=== PATIENT | male | born 1950 | race Caucasian/White ===

== ENCOUNTER 2018-09-08 03:18 | Inpatient (IN) | payer OTHER ==
--- OUTSIDE RECORDS SUMMARY | 2018-09-08 03:21 | XMS REPORT | Continuity of Care Document ---
:1950 Author Organization Interface Problems Problem Status Onset Classification Date Comments Source Date Reported M47.812 - SPONDYLOSIS Active 08/28/19 [facility] W/O MYELOPATHY OR [place] BACK/ ARM/ NECK PAIN Active 06/12/[address] CERVICAL SPINAL Active 06/12/[address] Hypercholesteremia Resolved Problem 07/31/2017 [facility]ension Resolved Problem 07/31/2017 [facility], [facility] Hypothyroid Resolved Problem 07/31/2017 [facility] Hiatal hernia Active Problem 07/31/2017 [facility], [facility] Osteoarthritis Resolved Problem 07/31/2017 [facility], [facility] Cervical stenosis of Resolved Problem 07/31/2017 [facility] spinal canal Neuro, [facility] SPINAL STENOSIS, Active [facility] Medications Medication Details Route Status Patient Ordering Order Source Instructions Provider Date tamsulosin 0.4 mg 0.8 mg=2 cap, Active 07/04[facility] oral capsule PO, After 2017 Medical Breakfast, # 60 Center cap, 0 Refill(s) Docusate Sodium 100 mg=1 cap, Active 07/04[facility] [place] 100 MG Oral PO, Q12H, # 30 2017 Medical Capsule cap, 0 Refill(s) Center diazepam 5 mg 5 mg=1 tab, PO, Active 07/04[facility] oral tablet Q8H, PRN Spasm, 2017 Medical # 30 tab, 0 Center Refill(s) Melatonin 3 MG 3 mg, 1 tab, No Longer [facility] Extended Release Route: PO, Drug Active 2016 Medical Tablet Form: TAB, Center Dosing Weight 81.364, kg, PRN, PRN as needed for insomnia, Start date: 07/03/16 18:36:00 CDT, Duration: 30 day, Stop date: 08/02/16 18:35:00 CDTNotes: (Same as: Melatonin) metoprolol 25 mg=1 tab, PO, Active [place] tartrate 25 mg BID, # 180 tab, 2017 Medical oral tablet 0 Refill(s) Center Lisinopril 10 mg, 1 tab, No Longer [place] Route: PO, Drug Active 2016 Medical form: TAB, Center Daily, Dosing Weight 81.364, kg, Start date: 07/03/16 9:00:00 CDT, Duration: 30 day, Stop date: 08/01/16 9:00:00 CDTNotes: (Same as: Prinivil, Zestril) Flomax 0.8 mg, 2 cap, No Longer [facility] Route: PO, Drug Active 2016 Medical form: CAP, After Center Breakfast, Dosing Weight 81.364, kg, Start date: 07/03/16 8:30:00 CDT, Duration: 30 day, Stop date: 08/01/16 8:30:00 CDTNotes: (Same As: Flomax) "Do Not Crush" Thyroxine 75 microgram, 1 No Longer [facility] tab, Route: PO, Active 2016 Medical Drug form: TAB, Center Q630AM, Dosing Weight 81.364, kg, Start date: 07/03/16 6:30:00 CDT, Duration: 30 day, Stop date: 08/01/16 6:30:00 CDT Cefazolin 2 gm, Route: No Longer [facility] IVPB, ABXQ8H, Active 2016 Medical Dosing Weight Center 81.364, kg, Start date: 07/02/16 20:00:00 CDT, Duration: 24 hr, Stop date: 07/03/16 12:00:00 CDTNotes: (Same As: AncJeferson solorzanofzofabby) MEDICATION WASTE Product Size: 1000 mg Product Wasted: ___ mg Dexamethasone 4 mg, 1 mL, No Longer [place] Route: IVP, Drug Active 2016 Medical form: INJ, Q6H, Center Dosing Weight 81.364, kg, Start date: 07/02/16 18:00:00 CDT, Duration: 30 day, Stop date: 08/01/16 12:00:00 CDTNotes: Concentration: 4mg/ml metoprolol 50 mg, 1 tab, No Longer [facility] extended release Route: PO, Drug Active 2016 Medical form: ERTAB, Center BID, Start date: 07/02/16 17:00:00 CDT, Duration: 30 day, Stop date: 08/01/16 9:00:00 CDTNotes: (Same as: Toprol XL) Diazepam 5 mg, 1 tab, No Longer [facility] Route: PO, Drug Active 2016 Medical form: TAB, Q8H, Center Dosing Weight 81.364, kg, Start date: 07/02/16 16:00:00 CDT, Duration: 30 day, Stop date: 08/01/16 8:00:00 CDTNotes: (Same as: Valium) Oxycodone 5 mg, Route: PO, Inactive [facility] Drug form: TAB, 2017 Medical Q4H, Dosing Center Weight 81.364, kg, PRN Pain Score 4-6, Start date: 07/02/16 14:58:00 CDT, Duration: 30 day, Stop date: 08/01/16 14:57:00 CDT Ondansetron 4 mg, Route: Inactive [facility] IVP, ONCE, 2017 [facility] Dosing Weight [place] 81.364, kg, PRN Nausea & Vomiting, Start date: 07/02/16 14:58:00 CDT Flumazenil 0.2 mg, Route: Inactive [facility] IVP, PRN, Dosing 2017 Medical Weight 81.364, Center kg, PRN Benzodiazepine Reversal, Initial dose, Start date: 07/02/16 14:58:00 CDT, Duration: 30 day, Stop date: 08/01/16 14:57:00 CDT Naloxone 0.4 mg, Route: Inactive [facility] IVP, Q2MIN, 2017 Medical Dosing Weight Center 81.364, kg, PRN Narcotic Reversal, Start date: 07/02/16 14:58:00 CDT, Duration: 8 doses or times, Stop date: Limited # of times Hydromorphone 0.5 mg, Route: Inactive [facility] IVP, Q5Min, 2017 Medical Dosing Weight Center 81.364, kg, PRN Pain Score 7-10, Start date: 07/02/16 14:58:00 CDT, Duration: 4 doses or times, Stop date: Limited # of times Dexamethasone 10 mg, Route: Inactive [place] IVP, ONCE, 2017 Medical Dosing Weight Center 81.364, kg, Priority: NOW, Start date: 07/02/16 14:57:00 CDT, Stop date: 07/02/16 14:57:00 CDT Benadryl 25 mg, 1 cap, No Longer [place] Route: PO, Drug Active 2016 Medical form: CAP, TID, Center Dosing Weight 81.364, kg, PRN Itching, Start date: 07/02/16 14:55:00 CDT, Duration: 30 day, Stop date: 08/01/16 14:54:00 CDTNotes: (Same as: Benadryl) phenol 1 spray, Route: No Longer [facility] TOP, Daily, Drug Active 2016 Medical form: SPRY, PRN Center Sore Throat, Start date: 07/02/16 14:54:00 CDT, Duration: 30 day, Stop date: 08/01/16 14:53:00 CDTNotes: Chloraseptic [place] (Same as: Chloraseptic, Sore Throat [place]) WASTE: F/P - Black; E - Municipal Trash Bin Hydralazine 20 mg, 1 mL, No Longer [facility] Route: IVP, Drug Active 2016 Medical form: INJ, Q4H, Center Dosing Weight 81.364, kg, PRN Hypertension, Start date: 07/02/16 14:54:00 CDT, Duration: 30 day, Stop date: 08/01/16 14:53:00 CDTNotes: (Same as: Apresoline) Push over 5 minutes Labetalol 10 mg, 2 mL, No Longer [facility] Route: IVP, Drug Active 2016 Medical form: INJ, Center Q15Min, Dosing Weight 81.364, kg, PRN Hypertension, Start date: 07/02/16 14:54:00 CDT, Duration: 3 doses or times, Stop date: 07/31/16 0:00:00 CDT ondansetron Route: IV, Drug Inactive [facility]ush[facility] (ANES) form: INJ, ONCE, 2016 Medical Stop date: [place] 07/02/16 14:36:00 CDT neostigmine Route: IV, Drug Inactive [facility] (ANES) form: INJ, ONCE, 2016 Medical Stop date: [place] 07/02/16 14:36:00 CDT metoprolol (ANES) Route: IV, Drug Inactive [facility] form: INJ, ONCE, 2016 Medical Stop date: [place] 07/02/16 14:15:00 CDT hydromorphone Route: IV, Drug Inactive [facility]ar (ANES) + sodium form: INJ, ONCE, 2016 Medical chloride 0.9% 10 Stop date: [facility] INJ (ANES) 07/02/16 (ANES) 13:05:00 CDT acetaminophen Route: IV, Drug Inactive Tushar (ANES) (ANES) form: INJ, Start 2016 Medical date: 07/02/16 [place] 11:27:00 CDT, Stop date: 07/02/16 12:27:00 CDT labetalol (ANES) Route: IV, Drug Inactive [facility] form: INJ, ONCE, 2016 Medical Stop date: [place] 07/02/16 10:05:00 CDT ePHEDrine (ANES) Route: IV, Drug Inactive [facility] form: INJ, ONCE, 2016 Medical Stop date: [place] 07/02/16 9:38:00 CDT ketAMINE (ANES) Route: IV, Drug Inactive [facility] form: INJ, ONCE, 2016 Medical Stop date: [place] 07/02/16 9:38:00 CDT glycopyrrolate Route: IV, Drug Inactive [facility] (ANES) form: INJ, ONCE, 2016 Medical Stop date: [place] 07/02/16 9:38:00 CDT dexamethasone Route: IV, Drug Inactive [facility] (ANES) form: INJ, ONCE, 2016 Medical Stop date: [place] 07/02/16 9:33:00 CDT rocuronium (ANES) Route: IV, Drug Inactive [facility] form: INJ, ONCE, 2016 Medical Stop date: [place] 07/02/16 9:33:00 CDT fentaNYL (ANES) Route: IV, Drug Inactive [facility] form: INJ, ONCE, 2016 Medical Stop date: [place] 07/02/16 9:33:00 CDT propofol (ANES) Route: IV, Drug Inactive [facility] form: INJ, ONCE, 2016 Medical Stop date: [place] 07/02/16 9:33:00 CDT midazolam (ANES) Route: IV, Drug Inactive [facility] form: SOLN, 2017 Medical ONCE, Stop date: [place] 07/02/16 9:28:00 CDT ceFAZolin (ANES) Route: IV, Drug Inactive [facility] form: INJ, ONCE, 2016 Medical Stop date: [place] 07/02/16 9:28:00 CDT lidocaine (ANES) Route: IV, Drug Inactive [facility] form: INJ, ONCE, 2016 Medical Stop date: [place] 07/02/16 9:28:00 CDT Saline Flush 0.9% 10 ml, Route: No Longer [facility] IVP, Drug Form: Active 2016 Medical INJ, Dosing Center Weight 81.364, kg, Q12H, Start date: 07/02/16 9:00:00 CDT, Duration: 30 day, Stop date: 07/31/16 21:00:00 CDTNotes: Same as: BD Posiflush Sterile Docusate 100 mg, 1 cap, No Longer [place] Route: PO, Drug Active 2016 Medical form: CAP, Q12H, Center Dosing Weight 81.364, kg, Start date: 07/02/16 9:00:00 CDT, Duration: 30 day, Stop date: 07/31/16 21:00:00 CDTNotes: (Same as: Colace) (Do Not Crush) sennosides, MCC 8.6 mg, 1 tab, No Longer [place] Route: PO, Drug Active 2016 Medical Form: TAB, Center Dosing Weight 81.364, kg, Q12H, Start date: 07/02/16 9:00:00 CDT, Duration: 30 day, Stop date: 07/31/16 21:00:00 CDTNotes: (Same as: Senokot) Famotidine 20 mg, 2 mL, No Longer [facility] Route: IVP, Drug Active 2016 Medical form: INJ, Q12H, Center Dosing Weight 81.364, kg, Start date: 07/02/16 9:00:00 CDT, Duration: 30 day, Stop date: 07/31/16 21:00:00 CDTNotes: (Same as: Pepcid) Can be dilute in 5-10cc NS IVP: Slow IV push over at least 2 minutes. sodium chloride Route: IV, Drug Inactive [facility] 0.9% 100 ml INJ form: INJ, Start 2016 Medical (ANES) + date: 07/02/16 Center dexmedetomidine 8:55:00 CDT, (ANES) (ANES) Stop date: 07/02/16 9:55:00 CDT Dextrose 50% 12.5 gm, 25 mL, No Longer [facility] Syringe Route: IVP, Drug Active 2016 Medical Form: INJ, Center Dosing Weight 81.364, kg, PRN, PRN Abnormal Lab Result, Start date: 07/02/16 8:21:00 CDT, Duration: 30 day, Stop date: 08/01/16 8:20:00 CDT Regular Insulin, 3 unit, 0.03 mL, No Longer [place] Human 100 UNT/ML Route: SUB-Q, Active 2016 Medical Injectable Drug form: SOLN, Center Solution PRN, Dosing Weight 81.364, kg, PRN Abnormal Lab Result, Start date: 07/02/16 8:21:00 CDT, Duration: 30 day, Stop date: 08/01/16 8:20:00 CDTNotes: (Same as: Humulin R) Roll in palms of hands gently; Do not shake vigorously. "single patient use only" (Restricted to patients requiring a dose > 60 units) WASTE: F/P - Black; E - Municipal Trash Bin Stable for 28 days at room temperature Expires in days from Da te Saline Flush 0.9% 10 ml, Route: No Longer [facility] IVP, Drug Form: Active 2016 Medical INJ, Dosing Center Weight 81.364, kg, PRN, PRN Line Flush, Start date: 07/02/16 8:21:00 CDT, Duration: 30 day, Stop date: 08/01/16 8:20:00 CDTNotes: Same as: BD Posiflush Sterile Ondansetron 4 mg, 2 mL, No Longer [place] Route: IVP, Drug Active 2016 Medical form: INJ, Q8H, Center Dosing Weight 81.364, kg, PRN Nausea & Vomiting, Start date: 07/02/16 8:21:00 CDT, Duration: 30 day, Stop date: 08/01/16 8:20:00 CDTNotes: (Same as: Zofran) MEDICATION WASTE Product Size: 4 mg Product Wasted: ___ mg Bisacodyl 10 mg, 1 supp, No Longer [place] Route: VT, Drug Active 2016 Medical form: SUPP, Center Daily, Dosing Weight 81.364, kg, PRN Constipation, Start date: 07/02/16 8:21:00 CDT, Duration: 30 day, Stop date: 08/01/16 8:20:00 CDTNotes: (Same As: Dulcolax, Bisco-Lax) Acetaminophen 650 mg, 2 tab, No Longer [place] Route: PO, Drug Active 2016 Medical form: TAB, Q4H, Center Dosing Weight 81.364, kg, PRN Pain 1-3/Temp > 99.5 F, Start date: 07/02/16 8:21:00 CDT, Duration: 30 day, Stop date: 08/01/16 8:20:00 CDTNotes: Do not exceed 4 gm/day. (Same as: Tylenol) Morphine 2 mg, 0.5 mL, No Longer [facility] Route: IVP, Drug Active 2016 Medical form: INJ, Q1H, Center Dosing Weight 81.364, kg, PRN Pain Score 7-10, Start date: 07/02/16 8:21:00 CDT, Duration: 30 day, Stop date: 08/01/16 8:20:00 CDTNotes: (Same as:MORPhine Sulfate) Acetaminophen 325 1 tab, Route: No Longer [facility] MG / Hydrocodone PO, Drug Form: Active 2017 Medical Bitartrate 10 MG TAB, Dosing Center Oral Tablet Weight 81.364, kg, Q4H, PRN Pain Score 4-6, Start date: 07/02/16 8:21:00 CDT, Duration: 30 day, Stop date: 08/01/16 8:20:00 CDTNotes: Do not exceed 4gm/day of acetaminophen. (Same as: [place] 325/10) Sodium Chloride 1,000 mL, Rate: No Longer Tushar 0.154 MEQ/ML 100 ml/hr, Active 2016 Medical Injectable Infuse over: 10 Center Solution hr, Route: IV, Dosing Weight 81.364 kg, Total Volume: 1,000, Start date: 07/02/16 8:21:00 CDT, Duration: 30 day, Stop date: 08/01/16 8:20:00 CDT LR 1000 mL INJ Route: IV, Total Inactive Tushar (ANES) Volume: 1,000, 2016 Medical Start date: Center 07/02/16 8:10:00 CDT, Stop date: 07/02/16 9:10:00 CDT ceFAZolin 2 gm, 100 mL, No Longer [facility] Route: IVPB, Active 2016 Medical Drug form: INJ, Center PRE OP, Start date: 07/01/16 23:00:00 CDT, Duration: 1 day, Stop date: 07/02/16 22:59:00 CDTNotes: Same as: Ancef Acetaminophen 325 1 tab, PO, Q6H, Active [facility] MG / Hydrocodone PRN Pain, # 60 2016 Medical Bitartrate 7.5 MG tab, 0 Refill(s) Center Oral Tablet [[place] 7.5/325] levothyroxine 75 75 microgram=1 Active [facility]ar mcg (0.075 mg) tab, PO, Daily, 2017 Medical oral tablet # 30 tab, 0 Center Refill(s) {21 See Active [facility] (Methylprednisolo Instructions, 2017 Medical ne 4 MG Oral PO, Take by Center Tablet [Medrol]) mouth as } Pack [Medrol directed on Dosepak] label., # 1 Pack, 0 Refill(s), Pharmacy: [facility] #[id number] Acetaminophen 325 1 tab, Route: Inactive [place] MG / Hydrocodone PO, Drug Form: 2016 Medical Bitartrate 5 MG TAB, Dosing Center Oral Tablet Weight 82.727, kg, ONCE, STAT, Start date: 06/11/16 18:52:00 CDT, Stop date: 06/11/16 18:52:00 CDT Acetaminophen 650 mg, Route: Inactive [place] PO, Drug form: 2016 Medical TAB, ONCE, Center Dosing Weight 82.727, kg, Priority: STAT, Start date: 06/11/16 17:12:00 CDT, Stop date: 06/11/16 17:12:00 CDT Acetaminophen 325 1 tab, Route: Inactive [place] MG / Hydrocodone PO, Drug Form: 2016 Medical Bitartrate 5 MG TAB, Dosing Center Oral Tablet Weight 82.727, kg, ONCE, STAT, Start date: 06/11/16 11:57:00 CDT, Stop date: 06/11/16 11:57:00 CDT Allergies, Adverse Reactions, Alerts Substance Category Reaction Severity Reaction Status Date Comments Source type Reported Immunizations Immunization Date Given Site Status Last Updated Comments Source Results Order Name Results Value Reference Date Interpretation Comments Source Range Spine Spine EXAM: CT CERVICAL SPINE WITHOUT CONTRAST 04/01 [facility] cervical wo cervical - [place] contrast CT contrast CT DATE: 04/01/2018 10:47 AM APPLICATION SOFTWARE DEVELOPER Read by: Derek Chau MD Dictated Date/time: 04/01/18 11:47 Electronically Signed by: Derek Chau MD 04/01/18 12:02 FINAL REPORT INDICATION: M 54.12 radiculopathy, cervical region COMPARISON: Conventional radiographs 08/21/2016 TECHNIQUE: Volumetric acquisition of the cervical spine, from the level of the skull base to upper T3 without contrast. Axial, sagittal and coronal reconstructions. IV contrast: None. DLP: 453.96 mGy-cm FINDINGS: The visualized portions of the brain parenchyma are unremarkable. The craniocervical junction has a normal appearance. The cerebellar tonsils are in the normal position. No obvious intradural pathology is present. The patient has undergone an anterior cervical fusion at C4-C5 in the distant past with interval removal of the associated hardware. More recent anterior cervical fusions are present at C3-C4 and C6-C7. Interbody fusion devices are present at each of these levels. The fixation hardware and associated screws are normally located without evidence of fracture or loosening. The interbody device is well incorporated at the C3-C4 level. It is incorporated centrally at C5-C6 although the lateral aspects of the disc do not yet demonstrate bony ankylosis. In addition to the postsurgical fusions there is bony ankylosis of the left articular facet complex at C2-C3. Vertebral alignment: A slight reduction of the cervical lordosis is noted consequent to the upper cervical fusions. Alignment is otherwise preserved and unchanged. Vertebral shape: Vertebral height is normal. Fracture: None. Disk spaces, spinal canal and foramina: There is relative preservation of intervertebral disc height at the C5-C6 unfused level. A large left marginal osteophyte extends superiorly from the disc space t oward the foramen transversarium other discs are obliterated as a consequence of fusion. Above the level of fusion there is a reduction in intervertebral disc height at C2-C3 with left uncinate process hypertrophy. C2-C3: Minimal left foraminal stenosis. C3-C4: Moderate left foraminal stenosis. Mild right foraminal narrowing. C4-C5: No spinal canal or foraminal narrowing. C5-C6: No spinal canal stenosis. Minimal bilateral foraminal narrowing. C6-C7: Mild residual ventral encroachment on the spinal canal. Mild to moderate foraminal narrowing on the left. Spinal canal contents and spinal cord: No obvious abnormality. Paraspinal soft tissues: Expected postprocedural changes. No radiographic findings of vocal cord paralysis are present. IMPRESSION: Superior and inferior cervical fusion constructs are intact. Mild residual canal encroachment at C6-C7 with mild to moderate foraminal narrowing on the left. Spine Spine EXAM: XR CERVICAL SPINE 2 VIEWS 08/21 - [facility] cervical 2 cervical - [place] or 3 view or 3 view DX DX DATE: 08/21/2016 2:24 PM CDT Read by: Jose Rose MD Dictated Date/time: 08/21/16 14:48 Electronically Signed by: Jose Rose MD 08/21/16 14:49 FINAL REPORT INDICATION: - EVERARDO Castellon/DR. HAMILTON 08/31/16 @ 2:00P COMPARISON: Radiograph dated 07/14/2016 TECHNIQUE: AP and lateral views of the cervical spine FINDINGS: Anterior fusion hardware C3-C4 and C6-C7 again visualized unchanged without complications. Osseous fusion of C4-C5 also appears unchanged. C5-C6 and C2-C3 disc space appears intact. No fractures. No soft tissue abnormality. IMPRESSION: 1. No acute abnormality. 2. Anterior fusion hardware C3-C4 and C6-C7 in good position. Spine Spine EXAM: XR CERVICAL SPINE 2 VIEWS 07/14 - [facility] cervical 2 cervical - [place] or 3 view or 3 view DX DX DATE: 07/14/2016 11:49 AM CDT Read by: James Whaley MD Dictated Date/time: 07/14/16 12:24 Electronically Signed by: James Whaley MD 07/14/16 12:25 FINAL REPORT INDICATION: Z98.1 Arthrodesis status COMPARISON: Previous day MRI TECHNIQUE: AP and lateral views of the cervical spine FINDINGS: ACDF spanning C3/C4 and C6/C7. Satisfactory alignment. Vertebral body heights, disk heights and alignment are otherwise preserved. No prevertebral or paraspinous soft tissue abnormality is identified. IMPRESSION: No acute abnormality. ACDF across C3/4 and C6/C7. ELECTROLYTE AGAP 10.1 meq/L 10.0 - 07/[address] [facility] [address] [facility] ELECTROLYTE eGFR 83 07/02 Result Comment: The eGFR is calculated using the CKD-EPI formula. In most young, healthy individuals the eGFR will be >90 mL/ min/1.73m2. The eGFR declines with age. An eGFR of 60-89 may be normal in [facility] mL/min/1.73 /[facility] some populations, particularly the elderly, for whom the CKD-EPI formula has not been extensively validated. Use of the eGFR is not recommended in the following populations: [address] Individuals with unstable creatinine concentrations, including patients and those with serious co-morbid conditions. Patients with extremes in muscle mass or diet. The data above are obtained from the National Kidney Disease Education Program (NKDEP) which additionally recommends that when the eGFR is used in patients with extremes of body mass index for purposes of drug dosing, the eGFR should be multiplied by the estimated BMI. ELECTROLYTE CO2 28 meq/L 24 - 32 07/[address] ELECTROLYTE Calcium Lvl 8.9 mg/dL 8.5 - 10.5 07/[address] ELECTROLYTE Chloride Lvl 105 meq/L 95 - 109 07/02 [facility] ELECTROLYTE Potassium 4.1 meq/L 3.5 - 5.1 07/02 [facility] S Lvl [facility] ELECTROLYTE BUN 15 mg/dL 7 - 22 07/02 [facility] ELECTROLYTE Creatinine 0.95 mg/dL 0.50 - 07/02 [facility] S Lvl 1.40 [facility] ELECTROLYTE Sodium Lvl 139 meq/L 135 - 145 07/02 [facility] ELECTROLYTE Glucose Lvl 93 mg/dL 70 - 99 07/02 [facility] HEMATOLOGY INR 1.07 0.85 - 07/[address] [facility] HEMATOLOGY PTT 28.7 s 22.9 - 07/[address] [facility] HEMATOLOGY PT 14.1 s 12.0 - 07/[address] [facility] HEMATOLOGY MCH 29.5 pg 27.0 - 07/[address] [facility] HEMATOLOGY MPV 8.0 fL 7.4 - 10.4 07/02 [facility] HEMATOLOGY Platelet 266 K/CMM 133 - 450 07/02 [facility] HEMATOLOGY MCV 87.4 fL 80.0 - 07/[address] [facility] HEMATOLOGY MCHC 33.7 g/dL 32.0 - 07/[address] [facility] HEMATOLOGY RDW 12.3 % 11.5 - 07/[address] [facility] HEMATOLOGY WBC 6.5 K/CMM 3.7 - 10.4 07/02 [facility] HEMATOLOGY RBC 5.05 M/CMM 4.70 - 07/[address] [facility] HEMATOLOGY Hgb 14.9 g/dL 14.0 - 07/[address] [facility] HEMATOLOGY Hct 44.1 % 42.0 - 07/[address] [facility] HEMATOLOGY Basophils # 0.2 K/CMM 0.0 - 0.2 07/02 [facility] HEMATOLOGY Basophils 2.5 % 0.0 - 1.0 07/02 [facility] HEMATOLOGY Segs-Bands # 3.5 K/CMM 1.5 - 8.1 07/02 [facility] HEMATOLOGY Segs 54.8 % 45.0 - 07/[address] [place] [address] [facility] HEMATOLOGY Lymphocytes 30.9 % 20.0 - 07/[address] [place] [address] [facility] HEMATOLOGY Monocytes 8.5 % 2.0 - 12.0 07/02 [facility] HEMATOLOGY Eosinophils 3.3 % 0.0 - 4.0 07/02 [facility] HEMATOLOGY Lymphocytes 2.0 K/CMM 1.0 - 5.5 07/02 [place] # /2016 [facility] HEMATOLOGY Monocytes # 0.6 K/CMM 0.0 - 0.8 07/02 [facility] HEMATOLOGY Eosinophils 0.2 K/CMM 0.0 - 0.5 07/[address] [facility] BLOOD BANK ABO/Rh O POS 07/02 [facility] RESULTS [facility] BLOOD BANK Antibody Negative 07/02 [facility] RESULTS [facility] (07/02/16 7:15 AM) Center Spine Spine EXAM: MRI CERVICAL SPINE WITHOUT CONTRAST 06/11 - [facility] cervical wo cervical - [facility] contrast contrast MRI This report was dictated by a Eye Technician/Fellow. I have personally reviewed the images as Center MRI well as the Resident's interpretation and agree with the findings. DATE: 06/11/2016 at 1525 hours Read by: Joaquin Low MD Resident: Joaquin Low MD Dictated Date/time: 06/11/16 15:56 Electronically Signed by: Shelton Rangel MD 06/11/16 17:16 FINAL REPORT INDICATION: 65 years old male patient with history of history of cervical spine fusion, with neck pain radiating into right arm for 3 weeks.. COMPARISON: None TECHNIQUE: Multiplanar, multisequence noncontrast MR imaging of the cervical spine. FINDINGS: There is status post anterior interbody fusion at C4-C5 along with anterior instrumentation. All discs are desiccated. Degenerative disc collapse is present C3-C4. The C5-C6 level is normal in height. C anal stenosis is present at C3-C4 and C6-C7. The vertebral bodies are normal in alignment. There is mild degenerative loss of the vertebral body height at C3, C6, and C7. Aside from small vertebral hem angiomas, the bone marrow signals are normal. The prevertebral and paravertebral soft tissues are unremarkable. Levels not mentioned specifically below are deemed normal. INDIVIDUAL LEVELS: C3-C4: There is loss of disc height with associated posterior disc osteophyte complex resulting in slight indentation of the ventral cord. There is uncovertebral hypertrophy without neuroforaminal stenosis. C4-C5: Changes of ACDF are present. The spinal canal is normal in diameter. The neural foramina are patent. There is focal T2 hyperintensity seen in the left aspect of the cord. The cervical cord looks slightly thicker above and below this level suggesting a degree of atrophy. C6-C7: There is diffuse bulging of the posterior annulus resulting in slight indentation of the ventral cord. No myelomalacia seen. There is minimal uncovertebral hypertrophy. The neural foramina appear patent. IMPRESSION: 1. Moderate spinal canal stenosis at C3-C4 and C6-C7 with indentation of the ventral cord without myelomalacia. 2. 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 Vital Signs Vital Sign Value Date Comments Source Heart Rate 67 07/04/2016 [facility] Systolic (mm Hg) 145 07/04/2016 [facility] Diastolic (mm Hg) 82 07/04/2016 [facility] Respitory Rate 18 07/04/2016 [facility] Temperature Oral (F) 97 F 07/04/2016 [facility] Heart Rate 56 07/04/2016 [facility] Systolic (mm Hg) 137 07/04/2016 [facility] Diastolic (mm Hg) 71 07/04/2016 [facility] Respitory Rate 18 07/04/2016 [facility] Heart Rate 65 07/04/2016 [facility] Temperature Oral (F) 97.0 F 07/04/2016 [facility] Systolic (mm Hg) 121 07/04/2016 [facility] Diastolic (mm Hg) 70 07/04/2016 [facility] Respitory Rate 18 07/04/2016 [facility] Temperature Oral (F) 97.4 F 07/04/2016 [facility] Weight 81.364 07/02/2016 [facility] BMI Calculated 28.95 07/02/2016 [facility] Height 167.64 cm 07/02/2016 [facility] Weight 81.364 07/01/2016 [facility] BMI Calculated 28.95 07/01/2016 [facility] Height 167.64 cm 07/01/2016 [facility] Systolic (mm Hg) 174 06/12/2016 [facility] Diastolic (mm Hg) 82 06/12/2016 [facility] Heart Rate 54 06/12/2016 [facility] Temperature Oral (F) 98.0 F 06/12/2016 [facility] Respitory Rate 16 06/12/2016 [facility] Temperature Oral (F) 97.7 F 06/11/2016 [facility] Heart Rate 55 06/11/2016 [facility] Systolic (mm Hg) 162 06/11/2016 [facility] Diastolic (mm Hg) 96 06/11/2016 [facility] Respitory Rate 16 06/11/2016 [facility] Weight 82.727 06/11/2016 [facility] Height 167.64 cm 06/11/2016 [facility] BMI Calculated 29.44 06/11/2016 [facility] Temperature Oral (F) 96.7 F 06/11/2016 [facility] Heart Rate 55 06/11/2016 [facility] Respitory Rate 16 06/11/2016 [facility] Systolic (mm Hg) 182 06/11/2016 [facility] Diastolic (mm Hg) 100 06/11/2016 [facility] Encounters Location Location Encounter Encounter Reason Attending ADM DC Status Source Details Type Number For Provider Date Date [id number] [id number] [facility] 06/12 [facility] [id number] [facility] 07[facility]03 [facility] Out[facility] [id number] OLIVIER 07/14 [facility] [id number] Olivier 07/14 07/15 [facility] [id number] OLIVIER 08/21 [facility] Out[facility] Di[facility] [id number] Olivier 08/21 08/22 [facility]2016 [facility] Outpatient [id number] [facility] 10/30 [facility] Phone [id number] 04/23 04/25 [facility]2017 [facility] [id number] [facility] 04/01 [facility] Procedures Procedure Code Date Perfomer Comments Source Cervical [id number] anterior 6-7 [facility] discectomy<sup>1</sup> [id number] Esophagoduodenostomy [id number] [facility] Cervical [id number] anterior 6-7 [facility] discectomy<sup>1</sup> [facility] Cervical discectomy [id number] [facility] Colonoscopy [id number] [facility] Esophagoduodenostomy [id number] [facility] Cervical [id number] anterior 6-7 [place] discectomy<sup>1</sup> [facility] Cervical discectomy [id number] [facility] Colonoscopy [id number] [facility] Esophagoduodenostomy [id number] [facility]
[2018-09-08] MEDS ORDERED: CEFTRIAXONE/SWI 1gm 1 GM/10 ML SYR ONE (04:25)
[2018-09-08] MEDS ORDERED: MORPHINE 4 MG/ML SYR ONE ×3 (04:25→08:28)
[2018-09-08] MEDS ORDERED: NA CHLORIDE 0.9% 1,000 ML ONE (04:25)
[2018-09-08] MEDS ORDERED: ONDANSETRON 4 MG/2 ML VIAL ONE (04:25)
[2018-09-08] MEDS ORDERED: CIPROFLOXACIN 400mg IV 400 MG/200 ML BAG IV ONE (04:26)
[2018-09-08] MEDS ORDERED: METRONIDAZOLE 500mg IVPB 500 MG/100 ML BAG IV ONE (04:26)
[2018-09-08 04:57] LABS: Absolute Lymphocytes (CBC) 1.4 K/uL (0.7-4.9); Basophils % 0.2 % (0-1.3); Eosinophils % 0.2 % (0-4.4); Hematocrit 47.8 % (39.6-49.0); Lymphocytes % 8.4 % (15.3-44.8); MPV 8.2 fL (7.6-11.3); Monocytes % 9.8 % (3.3-12.3); RBC Red Blood Cell Count 5.26 M/uL (4.33-5.43)
[2018-09-08 05:12] LABS: Albumin 3.9 g/dL (3.4-5.0); Bilirubin Direct 0.4 mg/dL (0-0.2); Bilirubin Total 1.6 mg/dL (0.2-1.0); Potassium 4.3 mmol/L (3.5-5.1); Protein, Total 8.5 g/dL (6.4-8.2)
[2018-09-08 05:19] LABS: Urine Blood TRACE (NEG); Urine Glucose NEGATIVE (NEG); Urine Protein 1+ (NEG); Urine Specific Gravity 1.025 (1.005-1.030)
--- NOTE | 2018-09-08 06:05 | ER ---
Nurse's Notes [facility] Name: Sarath Chávez Jr Age: 68 yrs Sex: Male : 1950 Arrival Date: 09/08/2018 Time: 03:20 Bed 19 Private MD: Teri Haskins H Diagnosis: Abdominal tenderness;Elevated white blood cell count;Diverticular disease of intestine;Diverticulitis of large intestine with perforation and abscess without bleeding;Cholelithiasis Presentation: 09/08 03:27 Presenting complaint: Patient states: I have started having lower abdominal pain that ed1 comes and goes. When it comes it is sharp but only lasts 20-30 seconds. Transition of care: patient was not received from another setting of care. Onset of symptoms was September 07, 2018. Risk Assessment: Do you want to hurt yourself or someone else? Patient reports no desire to harm self or others. Initial Sepsis Screen: Does the patient meet any 2 criteria? No. Patient's initial sepsis screen is negative. Does the patient have a suspected source of infection? No. Patient's initial sepsis screen is negative. Care prior to arrival: Medication(s) given: Hydrocodone 2100 yesterday. 03:27 Method Of Arrival: Ambulatory ed1 03:27 Acuity: VIJAY 3 ed1 Triage Assessment: 03:30 General: Appears uncomfortable, Behavior is calm, cooperative. Pain: Complains of pain ed1 in suprapubic area Pain currently is 6 out of 10 on a pain scale. GI: Reports diarrhea, Patient currently denies nausea, vomiting. Historical: - Allergies: 03:30 Bactrim; ed1 - PMHx: 03:30 Hypertension; ed1 - PSHx: 03:30 Disk fusion to neck; ed1 - Immunization history:: Adult Immunizations up to date. - Social history:: Smoking status: Patient/guardian denies using tobacco. - Ebola Screening: : Patient negative for fever greater than or equal to 101.5 degrees Fahrenheit, and additional compatible Ebola Virus Disease symptoms Patient denies exposure to infectious person Patient denies travel to an Ebola-affected area in the 21 days before illness onset No symptoms or risks identified at this time. - Family history:: not pertinent. Screenin:36 Abuse screen: Denies threats or abuse. Denies injuries from another. Nutritional cc3 screening: No deficits noted. Tuberculosis screening: No symptoms or risk factors identified. Fall Risk Ambulatory Aid- None/Bed Rest/Nurse Assist (0 pts). Gait- Normal/Bed Rest/Wheelchair (0 pts) Mental Status- Oriented to own ability (0 pts). Assessment: 03:36 General: Appears in no apparent distress. uncomfortable, Behavior is calm, cooperative, cc3 appropriate for age. Pain: Complains of pain in abdomen and suprapubic area. Neuro: Level of Consciousness is awake, alert, obeys commands, Oriented to person, place, time, situation, Appropriate for age. Cardiovascular: Denies chest pain, Patient's skin is warm and dry. Respiratory: Airway is patent Respiratory effort is even, unlabored, Respiratory pattern is regular, symmetrical. GI: Bowel sounds present X 4 quads. Abd is soft and non tender X 4 quads. : No signs and/or symptoms were reported regarding the genitourinary system. EENT: No signs and/or symptoms were reported regarding the EENT system. Derm: Skin is intact, is healthy with good turgor, Skin is pink, warm \T\ dry. normal. Musculoskeletal: Circulation, motion, and sensation intact. Range of motion: intact in all extremities. 04:12 Reassessment: Patient appears in no apparent distress at this time. Patient and/or cc3 family updated on plan of care and expected duration. Pain level reassessed. Patient is alert, oriented x 3, equal unlabored respirations, skin warm/dry/pink. Patient finished his oral contrast, mining technician Claudia informed. 05:10 Reassessment: Patient appears in no apparent distress at this time. Patient and/or cc3 family updated on plan of care and expected duration. Pain level reassessed. Patient is alert, oriented x 3, equal unlabored respirations, skin warm/dry/pink. Patient states feeling better. Patient states symptoms have improved. 05:40 Reassessment: Patient and/or family updated on plan of care and expected duration. Pain cc3 level reassessed. Patient is alert, oriented x 3, equal unlabored respirations, skin warm/dry/pink. Patient complains of abdominal pain again, Dr. Dinh informed and new order was made and carried out. 06:09 Reassessment: Patient appears in no apparent distress at this time. Patient and/or cc3 family updated on plan of care and expected duration. Pain level reassessed. Patient is alert, oriented x 3, equal unlabored respirations, skin warm/dry/pink. Patient is ordered for admission. Dr. Mayorga at bedside. Patient taken by mining technician to their department by wheelchair. Patient states symptoms have improved. 06:30 Reassessment: Patient appears in no apparent distress at this time. Patient and/or cc3 family updated on plan of care and expected duration. Pain level reassessed. Patient is alert, oriented x 3, equal unlabored respirations, skin warm/dry/pink. Patient came back from CT scan department, awaiting result. Patient denies pain at this time. Patient states feeling better. Patient states symptoms have improved. 07:45 Reassessment: Patient appears in no apparent distress at this time. Patient and/or ph family updated on plan of care and expected duration. Pain level reassessed. Patient is alert, oriented x 3, equal unlabored respirations, skin warm/dry/pink. Pt c/o pain 5/10 and requesting medication, ERP notified see MAY. 09:30 Reassessment: Patient appears in no apparent distress at this time. Patient and/or ph family updated on plan of care and expected duration. Pain level reassessed. Patient is alert, oriented x 3, equal unlabored respirations, skin warm/dry/pink. Pt reports that pain has improved to 2/10, awaiting room assignment. 10:28 Reassessment: Patient appears in no apparent distress at this time. Patient and/or ph family updated on plan of care and expected duration. Pain level reassessed. Patient is alert, oriented x 3, equal unlabored respirations, skin warm/dry/pink. Report called to Jenn AKBAR. Vital Signs: 03:30 BP 150 / 80; Pulse 75; Resp 17; Temp 98.1(TE); Pulse Ox 96% on R/A; Weight 83.91 kg; ed1 Height 5 ft. 6 in. (167.64 cm); Pain 6/10; 04:33 BP 168 / 98; Pulse 74; Resp 18 S; Pulse Ox 98% on R/A; cc3 05:08 BP 166 / 93; Pulse 78; Resp 17 S; Pulse Ox 97% on R/A; Pain 5/10; cc3 05:45 BP 158 / 90; Pulse 78; Resp 18 S; Pulse Ox 97% on R/A; cc3 06:00 BP 154 / 88; Pulse 97; Resp 18 S; Pulse Ox 98% on R/A; Pain 3/10; cc3 07:00 BP 154 / 87; Pulse 84; Resp 18; Pulse Ox 99% on R/A; ph 08:00 BP 156 / 89; Pulse 82; Resp 16; Pulse Ox 98% on R/A; Pain 5/10; ph 09:00 BP 136 / 78; Pulse 78; Resp 16; Pulse Ox 98% on R/A; ph 10:12 BP 128 / 82; Pulse 61; Resp 18; Temp 97.8; Pulse Ox 95% on R/A; ph 03:30 Body Mass Index 29.86 (83.91 kg, 167.64 cm) ed1 ED Course: 03:20 Patient arrived in ED. am2 03:21 Teri Haskins DO is Private Physician. am2 03:27 Roberto Dinh MD is Attending Physician. robert 03:29 Triage completed. ed1 03:30 Arm band placed on right wrist. ed1 03:36 Kavita Hong is Primary Nurse. cc3 03:36 Patient has correct armband on for positive identification. Placed in gown. Bed in low cc3 position. Call light in reach. Side rails up X 1. Pulse ox on. NIBP on. 04:25 Inserted saline lock: 20 gauge in left antecubital area, using aseptic technique. Blood cc3 collected. 06:03 Chuck Mayorga MD is Hospitalizing Provider. robert 06:42 CT Abd/Pelvis - PO and IV Contrast In Process Unspecified. EDMS 07:00 Report given to NAOMIE Velasquez. cc3 08:05 Eva Ruth RN is Primary Nurse. ph 10:12 No provider procedures requiring assistance completed. Patient admitted, IV remains in ph place. Administered Medications: 04:25 Drug: NS 0.9% 1000 ml Route: IV; Rate: 1 bolus; Site: left antecubital; cc3 05:30 Follow up: Response: No adverse reaction; IV Status: Completed infusion; IV Intake: cc3 1000ml 04:25 Drug: morphine 4 mg Route: IVP; Site: left antecubital; cc3 05:07 Follow up: Response: No adverse reaction; Pain is decreased cc3 04:30 Drug: Zofran 4 mg Route: IVP; Site: left antecubital; cc3 05:07 Follow up: Response: No adverse reaction; Nausea is decreased cc3 04:34 Drug: Rocephin - (cefTRIAXone) 1 grams Route: IVPB; Infused Over: 30 mins; Site: left cc3 antecubital; 04:40 Follow up: Response: No adverse reaction; IV Status: Completed infusion; IV Intake: [id number] 04:40 Drug: Flagyl 500 mg Volume: 100 ml; Route: IVPB; Rate: 200 ml/hr; Infused Over: 30 cc3 mins; Site: left antecubital; 05:05 Follow up: Response: No adverse reaction; IV Status: Completed infusion; IV Intake: cc3 100ml 05:05 Drug: Cipro 400 mg Volume: 200 ml; Route: IVPB; Infused Over: 60 mins; Site: left cc3 antecubital; 06:57 Follow up: Response: No adverse reaction; IV Status: Completed infusion; IV Intake: cc3 200ml 05:41 Drug: morphine 4 mg Route: IVP; Site: left antecubital; cc3 06:00 Follow up: Response: No adverse reaction; Pain is decreased cc3 08:19 Drug: morphine 4 mg Route: IVP; Site: left antecubital; ph 10:31 Follow up: Response: No adverse reaction; Pain is decreased ph Intake: 04:40 IV: 10ml; Total: 10ml. cc3 05:05 IV: 100ml; Total: 110ml. cc3 05:30 IV: 1000ml; Total: 1110ml. cc3 06:57 IV: 200ml; Total: 1310ml. cc3 Outcome: 06:05 Decision to Hospitalize by Provider. robert 10:30 Admitted to Med/surg accompanied by tech, via wheelchair, room 403, with chart, Report ph called to Jenn AKBAR 10:30 Condition: stable 10:30 Instructed on the need for admit. 10:45 Patient left the ED. iw Signatures: Dispatcher [employer] EDRoberto Connors MD MD cha Williams, Irene, RN RN iw Rina Novak RN RN ed1 Eva Ruth RN RN ph Annette Kirk am2 Kavita Hong cc3 Corrections: (The following items were deleted from the chart) 03:31 03:30 BP 150 / 80; Pulse 75bpm; Resp 17bpm; Pulse Ox 96% RA; Temp 98.1F Temporal; 83.91 ed1 kg; Height 5 ft. 6 in.; BMI: 29.8; ed1 06:11 06:09 Reassessment: Patient appears in no apparent distress at this time. Patient cc3 and/or family updated on plan of care and expected duration. Pain level reassessed. Patient is alert, oriented x 3, equal unlabored respirations, skin warm/dry/pink. Patient taken by mining technician to their department by wheelchair. Patient states symptoms have improved. cc3 06:52 06:00 BP 154 / 88; Pulse 97bpm; Resp 18bpm; Spontaneous; Pulse Ox 98% RA; cc3 cc3
--- NOTE | 2018-09-08 06:05 | EDPHYS ---
Physician Documentation [facility] Name: Sarath Chávez Jr Age: 68 yrs Sex: Male : 1950 Arrival Date: 09/08/2018 Time: 03:20 Bed 19 Private MD: Teri Haskins H ED Physician Roberto Dinh HPI: 09/08 03:55 This 68 yrs old Male presents to ER via Ambulatory with complaints of robert Abdominal Pain. 03:55 The patient presents with abdominal pain in the lower abdomen, abdominal distention in robert the upper abdomen, in the lower abdomen. Onset: The symptoms/episode began/occurred 1 day(s) ago. The patient presents with tenderness, that is mild, urinary symptoms, dysuria. Onset: The symptoms/episode began/occurred 1 day(s) ago. Modifying factors: The symptoms are alleviated by nothing, the symptoms are aggravated by nothing. Modifying factors: The symptoms are alleviated by. Associated signs and symptoms: The patient has no apparent associated signs or symptoms. The symptoms do not radiate. Associated signs and symptoms: none. Severity of pain: At its worst the pain was moderate in the emergency department the pain is unchanged. Historical: - Allergies: 03:30 Bactrim; ed1 - PMHx: 03:30 Hypertension; ed1 - PSHx: 03:30 Disk fusion to neck; ed1 - Immunization history:: Adult Immunizations up to date. - Social history:: Smoking status: Patient/guardian denies using tobacco. - Ebola Screening: : Patient negative for fever greater than or equal to 101.5 degrees Fahrenheit, and additional compatible Ebola Virus Disease symptoms Patient denies exposure to infectious person Patient denies travel to an Ebola-affected area in the 21 days before illness onset No symptoms or risks identified at this time. - Family history:: not pertinent. ROS: 03:55 Constitutional: Negative for fever, chills, and weight loss, Eyes: Negative for injury, robert pain, redness, and discharge, ENT: Negative for injury, pain, and discharge, Neck: Negative for injury, pain, and swelling, Cardiovascular: Negative for chest pain, palpitations, and edema, Respiratory: Negative for shortness of breath, cough, wheezing, and pleuritic chest pain, Back: Negative for injury and pain, : Negative for injury, bleeding, discharge, and swelling, MS/Extremity: Negative for injury and deformity, Skin: Negative for injury, rash, and discoloration, Neuro: Negative for headache, weakness, numbness, tingling, and seizure, Psych: Negative for depression, anxiety, suicide ideation, homicidal ideation, and hallucinations, Allergy/Immunology: Negative for hives, rash, and allergies, Endocrine: Negative for neck swelling, polydipsia, polyuria, polyphagia, and marked weight changes, Hematologic/Lymphatic: Negative for swollen nodes, abnormal bleeding, and unusual bruising. 03:55 Abdomen/GI: Positive for abdominal pain, of the suprapubic area, right lower quadrant and left lower quadrant. Exam: 03:55 Constitutional: This is a well developed, well nourished patient who is awake, alert, roebrt and in no acute distress. Head/Face: Normocephalic, atraumatic. Eyes: Pupils equal round and reactive to light, extra-ocular motions intact. Lids and lashes normal. Conjunctiva and sclera are non-icteric and not injected. Cornea within normal limits. Periorbital areas with no swelling, redness, or edema. ENT: Nares patent. No nasal discharge, no septal abnormalities noted. Tympanic membranes are normal and external auditory canals are clear. Oropharynx with no redness, swelling, or masses, exudates, or evidence of obstruction, uvula midline. Mucous membranes moist. Neck: Trachea midline, no thyromegaly or masses palpated, and no cervical lymphadenopathy. Supple, full range of motion without nuchal rigidity, or vertebral point tenderness. No Meningismus. Chest/axilla: Normal chest wall appearance and motion. Nontender with no deformity. No lesions are appreciated. Cardiovascular: Regular rate and rhythm with a normal S1 and S2. No gallops, murmurs, or rubs. Normal PMI, no JVD. No pulse deficits. Respiratory: Lungs have equal breath sounds bilaterally, clear to auscultation and percussion. No rales, rhonchi or wheezes noted. No increased work of breathing, no retractions or nasal flaring. Back: No spinal tenderness. No costovertebral tenderness. Full range of motion. Male : Normal genitalia with no discharge or lesions. Skin: Warm, dry with normal turgor. Normal color with no rashes, no lesions, and no evidence of cellulitis. MS/ Extremity: Pulses equal, no cyanosis. Neurovascular intact. Full, normal range of motion. Neuro: Awake and alert, GCS 15, oriented to person, place, time, and situation. Cranial nerves II-XII grossly intact. Motor strength 5/5 in all extremities. Sensory grossly intact. Cerebellar exam normal. Normal gait. Psych: Awake, alert, with orientation to person, place and time. Behavior, mood, and affect are within normal limits. 03:55 Abdomen/GI: Inspection: abdomen appears normal, Bowel sounds: normal, Palpation: moderate abdominal tenderness, in the right lower quadrant and left lower quadrant, Liver: no appreciated palpable abnormalities, Hernia: not appreciated. Vital Signs: 03:30 BP 150 / 80; Pulse 75; Resp 17; Temp 98.1(TE); Pulse Ox 96% on R/A; Weight 83.91 kg; ed1 Height 5 ft. 6 in. (167.64 cm); Pain 6/10; 04:33 BP 168 / 98; Pulse 74; Resp 18 S; Pulse Ox 98% on R/A; cc3 05:08 BP 166 / 93; Pulse 78; Resp 17 S; Pulse Ox 97% on R/A; Pain 5/10; cc3 05:45 BP 158 / 90; Pulse 78; Resp 18 S; Pulse Ox 97% on R/A; cc3 06:00 BP 154 / 88; Pulse 97; Resp 18 S; Pulse Ox 98% on R/A; Pain 3/10; cc3 07:00 BP 154 / 87; Pulse 84; Resp 18; Pulse Ox 99% on R/A; ph 08:00 BP 156 / 89; Pulse 82; Resp 16; Pulse Ox 98% on R/A; Pain 5/10; ph 09:00 BP 136 / 78; Pulse 78; Resp 16; Pulse Ox 98% on R/A; ph 10:12 BP 128 / 82; Pulse 61; Resp 18; Temp 97.8; Pulse Ox 95% on R/A; ph 03:30 Body Mass Index 29.86 (83.91 kg, 167.64 cm) ed1 MDM: 03:27 Patient medically screened. [facility] 03:57 Data reviewed: vital signs, nurses notes, lab test result(s), radiologic studies, CT robert scan. 09/08 03:55 Order name: Basic Metabolic Panel [facility] 09/08 03:55 Order name: CBC with Diff [facility] 09/08 03:55 Order name: Creatinine for Radiology; Complete Time: 05:37 [facility] 09/08 03:55 Order name: Hepatic Function; Complete Time: 05:37 [facility] 09/08 03:55 Order name: Lipase; Complete Time: 05:37 [facility] 09/08 03:55 Order name: Urine Culture [facility] 09/08 03:55 Order name: CT Abd/Pelvis - PO and IV Contrast [facility] 09/08 03:56 Order name: Basic Metabolic Panel; Complete Time: 05:37 [facility] 09/08 03:56 Order name: CBC with Automated Diff; Complete Time: 05:37 [facility] 09/08 04:57 Order name: Urine Dipstick--Ancillary (enter results); Complete Time: 05:37 [facility] 09/08 03:55 Order name: IV Saline Lock; Complete Time: 04:46 [facility] 09/08 03:55 Order name: Labs collected and sent; Complete Time: 04:46 [facility] 09/08 03:55 Order name: Urine Dipstick-Ancillary (obtain specimen); Complete Time: 04:55 [facility] Administered Medications: 04:25 Drug: NS 0.9% 1000 ml Route: IV; Rate: 1 bolus; Site: left antecubital; cc3 05:30 Follow up: Response: No adverse reaction; IV Status: Completed infusion; IV Intake: cc3 1000ml 04:25 Drug: morphine 4 mg Route: IVP; Site: left antecubital; cc3 05:07 Follow up: Response: No adverse reaction; Pain is decreased cc3 04:30 Drug: Zofran 4 mg Route: IVP; Site: left antecubital; cc3 05:07 Follow up: Response: No adverse reaction; Nausea is decreased cc3 04:34 Drug: Rocephin - (cefTRIAXone) 1 grams Route: IVPB; Infused Over: 30 mins; Site: left cc3 antecubital; 04:40 Follow up: Response: No adverse reaction; IV Status: Completed infusion; IV Intake: 24ulog1 04:40 Drug: Flagyl 500 mg Volume: 100 ml; Route: IVPB; Rate: 200 ml/hr; Infused Over: 30 cc3 mins; Site: left antecubital; 05:05 Follow up: Response: No adverse reaction; IV Status: Completed infusion; IV Intake: cc3 100ml 05:05 Drug: Cipro 400 mg Volume: 200 ml; Route: IVPB; Infused Over: 60 mins; Site: left cc3 antecubital; 06:57 Follow up: Response: No adverse reaction; IV Status: Completed infusion; IV Intake: cc3 200ml 05:41 Drug: morphine 4 mg Route: IVP; Site: left antecubital; cc3 06:00 Follow up: Response: No adverse reaction; Pain is decreased cc3 08:19 Drug: morphine 4 mg Route: IVP; Site: left antecubital; ph 10:31 Follow up: Response: No adverse reaction; Pain is decreased ph Disposition: 09/08/18 06:05 Hospitalization ordered by Chuck Mayorga for Inpatient Admission. Preliminary diagnosis are Abdominal tenderness, Elevated white blood cell count, Diverticular disease of intestine, Diverticulitis of large intestine with perforation and abscess without bleeding, Cholelithiasis. - Bed requested for Telemetry/MedSurg (Inpatient). - Status is Inpatient Admission. iw - Condition is Fair. - Problem is new. - Symptoms have improved. UTI on Admission? No Signatures: Dispatcher [employer] EDMS Roberto Dinh MD MD cha Williams, Irene, RN RN iw Teri Davison ms, Erika, RN RN ed1 Eva Ruth RN RN Kavita Dinero cc3 Corrections: (The following items were deleted from the chart) 07:02 06:05 Hospitalization Ordered by Chuck Mayorga MD for Inpatient Admission. Preliminary robert diagnosis is Abdominal tenderness; Elevated white blood cell count. Bed requested for Telemetry/MedSurg (Inpatient). Status is Inpatient Admission. Condition is Fair. Problem is new. Symptoms have improved. UTI on Admission? No. robert 07:02 07:02 09/08/2018 06:05 Hospitalization Ordered by Chuck Mayorga MD for Inpatient robert Admission. Preliminary diagnosis is Abdominal tenderness; Elevated white blood cell count; Diverticular disease of intestine; Diverticulitis of large intestine with perforation and abscess without bleeding. Bed requested for Telemetry/MedSurg (Inpatient). Status is Inpatient Admission. Condition is Fair. Problem is new. Symptoms have improved. UTI on Admission? No. robert 09:18 07:02 09/08/2018 06:05 Hospitalization Ordered by Chuck Mayorga MD for Inpatient ms Admission. Preliminary diagnosis is Abdominal tenderness; Elevated white blood cell count; Diverticular disease of intestine; Diverticulitis of large intestine with perforation and abscess without bleeding; Cholelithiasis. Bed requested for Telemetry/MedSurg (Inpatient). Status is Inpatient Admission. Condition is Fair. Problem is new. Symptoms have improved. UTI on Admission? No. robert 10:26 09:18 09/08/2018 06:05 Hospitalization Ordered by Chuck Mayroga MD for Inpatient ms Admission. Preliminary diagnosis is Abdominal tenderness; Elevated white blood cell count; Diverticular disease of intestine; Diverticulitis of large intestine with perforation and abscess without bleeding; Cholelithiasis. Bed requested for Telemetry/MedSurg (Inpatient). Status is Inpatient Admission. Condition is Fair. Problem is new. Symptoms have improved. UTI on Admission? No. ms 10:45 10:26 09/08/2018 06:05 Hospitalization Ordered by Cuhck Mayorga MD for Inpatient iw Admission. Preliminary diagnosis is Abdominal tenderness; Elevated white blood cell count; Diverticular disease of intestine; Diverticulitis of large intestine with perforation and abscess without bleeding; Cholelithiasis. Bed requested for Telemetry/MedSurg (Inpatient). Status is Inpatient Admission. Condition is Fair. Problem is new. Symptoms have improved. UTI on Admission? No. ms
[2018-09-08] MEDS ORDERED: ACETAMINOPHEN 500 MG TAB PO PRN (07:57)
[2018-09-08] MEDS ORDERED: ONDANSETRON 4 MG/2 ML VIAL IV PRN (07:57)
--- NOTE | 2018-09-08 10:12 | RAD REPORT ---
EXAM DESCRIPTION: CT ABDOMEN AND PELVIS WITH CONTRAST. 09/08/2018 CLINICAL HISTORY: Abdominal pain. COMPARISON: CT abdomen and pelvis without contrast 12/13/2016. TECHNIQUE: Axial [address] imaging of the abdomen and pelvis performed utilizing intravenous contrast. Reformatted coronal and sagittal images reviewed. A dose reduction technique was utilized with automated exposure control according to patient size. FINDINGS: LOWER THORAX: Normal heart size. Clear lung bases. ABDOMEN: LIVER/GALLBLADDER: Mild bilateral lower lobe subpleural atelectasis. Normal liver. No mass or biliar y dilatation. Punctate stones in the gallbladder. No cholecystitis. SPLEEN/PANCREAS: Normal spleen. Normal pancreas. KIDNEYS/ADRENAL GLANDS: Normal adrenal glands. Anterior medial right renal exophytic 4.2 cm cyst. RETROPERITONEAL VESSELS/NODES: Normal aorta and inferior vena cava. Mild aortic atelectasis versus. No adenopathy. Mesenteric vessel s are well-opacified. BOWEL: Normal stomach. Small bowel loops are unremarkable. Normal appendix in the right lower quadra nt. There is moderate sigmoid colon diverticulosis. Circumferential wall thickening of the mid to dis kristie sigmoid involving a length of approximately 8 cm. There is adjacent perisigmoid edema. There is a peripherally enhancing fluid collection along the left side of the distal sigmoid, 2.2 cm, consisten t with a tiny abscess. MESENTERY/PERITONEUM: No adenopathy. No ascites or free air. PELVIS: BLADDER: Normal bladder. GENITAL ORGANS: Normal prostate. PERITONEUM: No pelvic free fluid or lymphadenopathy. BONES AND SOFT TISSUES: Normal lumbosacral alignment. Multilevel endplate Schmorl's nodes. No sublux ation. Intact bony pelvis. IMPRESSION: 1. Acute sigmoid colon diverticulosis with a small left perisigmoid 2.2 cm abscess. 2. Gallstone without cholecystitis. 3. Right renal cyst.. Electronically signed by: Jodie Dawson DO 09/08/2018 6:52 AM CDT Due to temporary technical issues with the PACS/Fluency reporting system, reports are being signed by the in house radiologist as a courtesy to ensure prompt reporting. The interpreting radiologist is f ully responsible for the content of the report.
[2018-09-08] MEDS: NA CHLORIDE 0.9% 1,000 ML IV SCH (11:08)
[2018-09-08] MEDS: ENOXAPARIN 40 MG/0.4 ML SQ SCH (11:09)
[2018-09-08] MEDS: Levofloxacin500mg IV 500 MG/100 ML BAG IV SCH (11:09)
[2018-09-08 11:30] VITALS: BMI 31.0
[2018-09-08 12:29] LABS: Urine Appearance CLEAR; Urine Bilirubin NEGATIVE (NEG); Urine Blood NEGATIVE (NEG); Urine Color YELLOW; Urine Glucose NEGATIVE (NEG); Urine Protein NEGATIVE (NEG); Urine Specific Gravity >=1.030 (1.005-1.030)
[2018-09-08 12:32] LABS: Urine Microscopic Reflex NO UMIC
[2018-09-08] MEDS: METRONIDAZOLE 500mg IVPB 500 MG/100 ML BAG IV SCH ×3 (12:52→23:55)
[2018-09-08] MEDS: MORPHINE 2 MG/ML SYR IV PRN ×3 (12:53→21:42)
--- NOTE | 2018-09-09 00:58 | HP ---
Date of Admission: 09/08/2018 Chief Complaint: Abdominal pain. Primary Care Physician: Dr. Haskins. Code Status: Full. History Of Present Illness: The patient is a 68-year-old male with past medical history of hypertens ion, hyperlipidemia, hypothyroidism, hepatitis C, who was in his usual state of health until a couple days prior to admission when the patient had sudden onset of abdominal pain which is mainly generali zed. The patient states some mild fever. No chills or night sweats. Does report some nausea. No v omiting. The patient had decreased appetite. Also reports some dysuria. No alleviating factors. T he patient's symptoms are constant, moderate, progressively worsening, nonradiating. The patient the refore came into the ER for further evaluation. His workup revealed a white count of 16,000. His im aging studies revealed acute sigmoid colon diverticulosis with small left perisigmoid 2.2-cm abscess, gallstone without cholecystitis, and right renal cyst. The patient was referred for admission, star elda on antibiotics. When seen in the ER, he was awake, alert, oriented x3, in some mild distress, st ating his pain had improved with analgesic medications. Past Medical History: Hypertension, hyperlipidemia, hypothyroidism, hepatitis C. Surgical History: Cervical fusion, right pterygium. Allergies: NO KNOWN DRUG ALLERGIES. Medications: List reviewed. Social History: The patient denies any tobacco use, alcohol use, or illicit drug use. Independent i n his activities of daily living. Family History: Positive for COPD, CVA, and coronary artery disease. Review of Systems: Ten-point system reviewed, negative except as per HPI. Physical Examination: Vital Signs: Temperature 97.8, heart rate 61, blood pressure 128/82, respirations 18, O2 95% on room air. General: Awake, alert, oriented x3. Elderly male, ill appearing, in some mild distress. HEENT: Normocephalic, atraumatic. PERRLA. EOMI. Dry mucous membranes. Oropharynx is clear. Norm al dentition. Conjunctivae are anicteric. Neck: Supple. No JVD. Trachea midline. CV: S1, S2. Regular rate and rhythm. Peripheral pulses are present. Respiratory: Clear to auscultation bilaterally. No wheezing or stridor. No use of accessory muscle s. Gastrointestinal: Abdomen is soft. Tenderness to palpation. No rebound or guarding. No rigidity. Bowel sounds positive. Extremities: No clubbing, cyanosis, or edema. No calf tenderness. Neuro: Cranial nerves 2-12 intact grossly. No focal neurological deficit. Speech is normal. Skin: No rashes. Normal skin turgor. Psych: Mood is okay. Affect is full. Insight and judgment are good. Laboratory Data: WBC 16.3, H and H 16.1 and 47.8, platelets 276, neutrophils 81%. Sodium 137, potas sium 4.3, chloride 104, CO2 27, BUN 12, creatinine 1.08, glucose 105, calcium 8.7. Total bilirubin 1 .6. UA is negative. Imaging Studies: CT scan of the abdomen and pelvis shows acute sigmoid colon diverticulosis with sma ll left perisigmoid 2.2-cm abscess, gallstone without cholecystitis, right renal cyst. Assessment And Plan: A 68-year-old male with: 1.Acute sigmoid diverticulitis with abscess. We will continue on IV antibiotics. Keep n.p.o. star t on IV fluids. General Surgery, Dr. Higgins, has been consulted. I spoke with Dr. Higgins. He patricia l be evaluating the patient shortly. We will continue with pain medications with IV analgesia. The patient does have elevated white blood cell count 16,000 with left shift. 2.Hyperbilirubinemia. 3.Essential hypertension. We will resume home medications as appropriate. 4.Hypothyroidism. 5.Hyperlipidemia. 6.We will hold statin as the patient is n.p.o. 7.History of hepatitis C, chronic without coma. 8.DVT prophylaxis, SCDs. No chemical anticoagulation due to possible surgical intervention. Admit the patient med-surg, place as in patient. Length of stay, greater than 2 midnights. /MICKIE Voice ID: [id number]
[2018-09-09] MEDS: MORPHINE 4 MG/ML SYR IV PRN ×2 (03:00→09:00)
[2018-09-09] MEDS: NA CHLORIDE 0.9% 1,000 ML IV SCH ×2 (03:05→20:45)
[2018-09-09 04:51] LABS: Absolute Lymphocytes (CBC) 1.3 K/uL (0.7-4.9); Basophils % 0.3 % (0-1.3); Eosinophils % 1.6 % (0-4.4); Hematocrit 42.8 % (39.6-49.0); Lymphocytes % 14.9 % (15.3-44.8); MPV 8.1 fL (7.6-11.3); Monocytes % 11.9 % (3.3-12.3); RBC Red Blood Cell Count 4.68 M/uL (4.33-5.43)
[2018-09-09 05:12] LABS: Albumin 3.3 g/dL (3.4-5.0); Bilirubin Total 1.1 mg/dL (0.2-1.0); Magnesium 2.4 mg/dL (1.8-2.4); Phosphorus 1.7 mg/dL (2.5-4.9); Potassium 4.4 mmol/L (3.5-5.1); Protein, Total 7.3 g/dL (6.4-8.2)
[2018-09-09] MEDS: METRONIDAZOLE 500mg IVPB 500 MG/100 ML BAG IV SCH ×3 (06:03→17:22)
[2018-09-09] MEDS: ENOXAPARIN 40 MG/0.4 ML SQ SCH (09:00)
[2018-09-09] MEDS: Levofloxacin500mg IV 500 MG/100 ML BAG IV SCH (09:00)
[2018-09-09] MEDS ORDERED: POTASSIUM PHOS IN 0.9 % NACL 15 MMOL/250 ML BAG IV ONE (09:00)
[2018-09-09 10:31] VITALS: O2SAT 96
--- NOTE | 2018-09-09 12:46 | PN ---
Date of Progress Note: 09/09/2018 Subjective: The patient seen and examined. Chart reviewed and case discussed with RN and Dr. Gianna medina. The patient feels significantly better. Pain improved; however, not completely resolved. Denies any nausea or vomiting. No further fevers. Medications: List reviewed. Physical Examination: Vital Signs: Temperature 97.6, heart rate 64, blood pressure 146/75, respirations 17, O2 96% on room air. General: Awake, alert, oriented x3. Elderly male, obese, in minimal distress. CV: S1 and S2. Regular rate and rhythm. Peripheral pulses present. Respiratory: Moving air well bilaterally. No wheezing or stridor. No use of accessory muscles. Gastrointestinal: Abdomen is minimally distended, mild tenderness to palpation. No rebound or guard ing. Positive bowel sounds. Extremities: No clubbing, cyanosis, or edema. Neurologic: Nonfocal. Laboratory Data: Sodium 140, potassium 4.4, chloride 107, CO2 28, BUN 10, creatinine 1.01, glucose 8 8, calcium 8.2, phosphorus 1.7, magnesium 2.4. WBC 8.8, H and H 14.4 and 42.8, platelets 248, neutro phils 71%. Urine culture showing 2+ gram-negative rods. Assessment And Plan: A 68-year-old male with: 1.Acute sigmoid diverticulitis with abscess. Continue IV antibiotics. We will start patient on ice chips. WBC count has normalized. Still has some minimal pain. Appreciate Dr. Higgins's input. No surgical intervention planned at this time. 2.Hyperbilirubinemia, likely acute phase reactant. 3.Essential hypertension, stable. We will resume home medications once the patient is able to jeffry ate p.o. 4.Hypothyroidism. 5.Hyperlipidemia, stable. 6.History of hepatitis C, chronic without coma. 7.Deep venous thrombosis prophylaxis with sequential compression device. We will add Lovenox. Ther e is no surgical intervention planned. We will continue to monitor closely. 8.Asymptomatic bacteriuria. The patient's urine culture growing 2+ gram-negative rods. We will fol low up on ID and sensitivity. Likely discharge in the next 24-48 hours depending on clinical response and once patient is toleratin g p.o.. /MICKIE Voice ID: [id number] Report ID: [id number]
[2018-09-09] MEDS: MORPHINE 2 MG/ML SYR IV PRN ×3 (14:01→22:01)
--- NOTE | 2018-09-09 14:28 | P.PN ---
Date of Service: 09/09/18 S: Patient feels much better today, up ambulating, tolerating full liquids. Pain appears we will control. Asked about going home. O: Vital signs are stable, abdomen is soft, minimal discomfort today mild guarding A: Diverticulitis appears to be resolving clinically P: Will advance to soft mechanical diet today.
[2018-09-09] MEDS: METOPROLOL TAR 25 MG TAB PO SCH (20:43)
[2018-09-09] MEDS ORDERED: ATORVASTATIN 10 MG TAB PO SCH (21:00)
[2018-09-10] MEDS: METRONIDAZOLE 500mg IVPB 500 MG/100 ML BAG IV SCH ×3 (00:14→11:43)
[2018-09-10 05:09] LABS: Absolute Lymphocytes (CBC) 1.6 K/uL (0.7-4.9); Basophils % 0.3 % (0-1.3); Hematocrit 42.3 % (39.6-49.0); Lymphocytes % 20.7 % (15.3-44.8); MPV 7.8 fL (7.6-11.3); Monocytes % 12.9 % (3.3-12.3); RBC Red Blood Cell Count 4.67 M/uL (4.33-5.43)
[2018-09-10 05:20] LABS: Albumin 3.1 g/dL (3.4-5.0); Bilirubin Total 0.7 mg/dL (0.2-1.0); Phosphorus 1.5 mg/dL (2.5-4.9); Potassium 4.9 mmol/L (3.5-5.1); Protein, Total 7.2 g/dL (6.4-8.2)
[2018-09-10] MEDS ORDERED: LEVOTHYROXINE SOD 0.075 MG TAB PO SCH (06:00)
[2018-09-10] MEDS: MORPHINE 2 MG/ML SYR IV PRN ×3 (06:20→15:02)
[2018-09-10] MEDS: POTASS/SODIUM PHOSPHATE 1 PKT POWD.PACK PO SCH ×3 (06:20→09:26)
[2018-09-10] MEDS ORDERED: LISINOPRIL 20 MG TAB PO SCH (09:00)
[2018-09-10] MEDS: ENOXAPARIN 40 MG/0.4 ML SQ SCH (09:27)
[2018-09-10] MEDS: Levofloxacin500mg IV 500 MG/100 ML BAG IV SCH (09:28)
[2018-09-10] MEDS: METOPROLOL TAR 25 MG TAB PO SCH (09:28)
[2018-09-10] MEDS ORDERED: HYDRALAZINE HCL 20 MG/ML VIAL IV PRN (10:01)
[2018-09-10] MEDS: NA CHLORIDE 0.9% 1,000 ML IV SCH ×2 (11:43)
--- NOTE | 2018-09-10 12:52 | PN ---
Date of Progress Note: 09/10/2018 Subjective: The patient seen and examined. Chart reviewed and case discussed with RN. The patient has been having multiple episodes of diarrhea. Stool was collected for C diff yesterday. States huber t he does not feel as well today compared to yesterday. Tolerating GI soft diet. Medications: List reviewed. Physical Examination: Vital Signs: Temperature 97, heart rate 54, blood pressure 168/74, respirations 21, O2 94% on room a ir. General: Awake, alert, oriented x3. Elderly male, in mild distress, obese. CV: S1 and S2. Regular rate and rhythm. Peripheral pulses present. Respiratory: Moving air well bilaterally. No wheezing or stridor. Gastrointestinal: Abdomen is soft. Mild tenderness to palpation in the epigastric and lower quadran t. No rebound or guarding. Positive bowel sounds. Extremities: No clubbing, cyanosis, or edema. Neurologic: Nonfocal. Skin: No rashes. Normal skin turgor. Laboratory Data: Sodium 141, potassium 4.9, chloride 109, CO2 27, BUN 11, creatinine 1.02, glucose 9 9, calcium 8.1, phosphorus 1.5, albumin 3.1. WBC 7.5, H and H 14.2 and 42.3, platelets 295, neutroph ils 63%. Urine culture growing out Klebsiella pneumoniae, sensitive to Levaquin. C diff assay is pe nding. Assessment And Plan: A 68-year-old male with: 1.Acute sigmoid diverticulitis with abscess. The patient is improving clinically. Responded well t o antibiotics. WBC count normalized. Still having residual pain. However, tolerating his diet. Dr Kim Higgins on board. Does not recommend any surgical intervention at this time. 2.Acute cystitis without hematuria secondary to Klebsiella pneumoniae, sensitive to Levaquin. We wi ll continue with IV antibiotics. 3.Essential hypertension, stable on medications. 4.Hypothyroidism, Synthroid. 5.Mixed hyperlipidemia, statin. 6.Hypophosphatemia. We will replace and monitor. 7.History of hepatitis C, chronic without coma. 8.Deep venous thrombosis prophylaxis with Lovenox. 9.Diarrhea, rule out clostridium difficile. C. diff assay is pending. Disposition: Likely discharge in the next 24-hours depending on C diff results and improvement in th e patient's diarrhea. SA/MODL Voice ID: [id number] Report ID: [id number]
[2018-09-10] MEDS ORDERED: LACTOBACILLUS/ACIDOPHILUS TAB PO SCH (14:58)
[2018-09-10 16:24] VITALS: BP 103/68; TEMP 97.3
--- NOTE | 2018-09-13 23:57 | DS ---
Date of Discharge: 09/10/2018 Consultants: Dr. Higgins with General Surgery. Discharge Diagnoses: 1.Acute sigmoid diverticulitis with abscess, resolving. 2.Acute cystitis without hematuria secondary to Klebsiella pneumoniae, sensitive to Levaquin. 3.Essential hypertension. 4.Hypothyroidism. 5.Mixed hyperlipidemia. 6.Hypophosphatemia, replaced. 7.History of hepatitis C, chronic, without coma. 8.Diarrhea, C diff negative. Hospital Course: The patient is a 68-year-old male, who came into the hospital with abdominal pain. The patient was found to have sigmoid diverticulitis with abscess. Dr. Higgins with General Surgery was consulted. He did not require any surgical intervention. He responded well to IV antibiotics. The patient's pain resolved. He was able to tolerate a soft diet. He was also found to have a UTI secondary to Klebsiella, which was treated with IV antibiotics. The patient was then cleared for dis charge and sent home in a stable condition. He will need to follow up with Dr. Higgins as an outpati ent and to have EGD and colonoscopy done as an outpatient to rule out any other source of these absce sses including malignancy. The patient voiced understanding. Discharge instructions explained to e patient. The patient was then sent home in a stable condition. Activity: As tolerated. Medications: As per medication reconciliation list. Followup: Follow up with primary care physician in 2-3 days. Follow up with surgeon, maribel Washburn 2 weeks. Return to ER for worsening condition. The patient to have outpatient colonoscopy schedul ed through PCP. For physical exam findings, please see progress note dictated on the day of discharge. Total time sp ent discharging the patient was 35 minutes. /MICKIE Voice ID: [id number] Report ID: [id number]
== END 2018-09-10 16:12 | disposition home or self-care (01) | DRG 392 ==
LOC: ER 03:18 → ERHOLD 07:58 → 4TH 10:30
PROVIDERS: ADMIT Hospitalist; ATTEND Family Medicine
DX: K57.20 Diverticulitis of large intestine with perforation and abscess without bleeding (principal); N30.00 Acute cystitis without hematuria; I10 Essential (primary) hypertension; E03.9 Hypothyroidism, unspecified; E78.2 Mixed hyperlipidemia; B18.2 Chronic viral hepatitis C; B96.1 Klebsiella pneumoniae [K. pneumoniae] as the cause of diseases classified elsewhere; R19.7 Diarrhea, unspecified; E83.39 Other disorders of phosphorus metabolism; Z88.1 Allergy status to other antibiotic agents
CPT/HCPCS: 36415; 74177; 80048; 80053; 80076; 81003; 83690; 83735; 84100; 85025; 87077; 87086; 87088; 87186; 87493; 96365; 96367; 96375; 99285; J0696; J0744; J1650; J2270; J2405; J7030; Q9967